=== PATIENT | female | born 1990 | race Caucasian/White ===

== ENCOUNTER 2017-09-05 16:19 | Observation (INO) | payer MEDICAID ==
[2017-09-05 17:24] LABS: ABSOLUTE BASOPHILS # (AUTO) 0.1 10^3/uL (0.0-0.2); ABSOLUTE LYMPHOCYTES (AUTO) 1.9 10^3/uL (0.5-4.7); ABSOLUTE MONOCYTES (AUTO) 0.6 10^3/uL (0.1-1.4); ABSOLUTE NEUT (AUTO) 7.8 10^3/uL (1.7-8.2); BASOPHILS % (AUTO) 0.7 % (0-2); EOSINOPHILS % (AUTO) 0.2 % (0-6); HEMATOCRIT 36.9 % (36.0-47.0); HEMOGLOBIN 12.2 g/dL (12.0-15.5); LYMPHOCYTES % (AUTO) 18.2 % (13-45); MEAN CORPUSCULAR HEMOGLOBIN 27.8 pg (27.0-33.4); MEAN CORPUSCULAR VOLUME 84 fl (80-97); PLATELET COUNT 141 10^3/uL (150-450); RED BLOOD COUNT 4.38 10^6/uL (3.72-5.28); RED CELL DISTRIBUTION WIDTH 13.7 % (11.5-14.0); SEGMENTED NEUTROPHILS % (AUTO) 74.9 % (42-78); TOTAL CELLS COUNTED % (AUTO) 100 %; WHITE BLOOD COUNT 10.5 10^3/uL (4.0-10.5)
[2017-09-05 17:53] LABS: ALANINE AMINOTRANSFERASE 17 U/L (9-52); ALBUMIN 3.2 g/dL (3.5-5.0); ALKALINE PHOSPHATASE 125 U/L (38-126); ANION GAP 13 (5-19); ASPARTATE AMINO TRANSFERASE 18 U/L (14-36); BILIRUBIN,DIRECT 0.3 mg/dL (0.0-0.4); BILIRUBIN,TOTAL 0.5 mg/dL (0.2-1.3); BLOOD UREA NITROGEN 12 mg/dL (7-20); CALCIUM 8.3 mg/dL (8.4-10.2); CARBON DIOXIDE 21 mmol/L (22-30); CHLORIDE 104 mmol/L (98-107); GLUCOSE 71 mg/dL (75-110); POTASSIUM 4.5 mmol/L (3.6-5.0); SODIUM 137.5 mmol/L (137-145); URIC ACID 6.8 mg/dL (2.5-6.2)
[2017-09-05 17:57] LABS: APPEARANCE,URINE CLEAR; BILIRUBIN,URINE NEGATIVE (NEGATIVE); COLOR,URINE YELLOW; GLUCOSE, URINE NEGATIVE (NEGATIVE); KETONES,URINE NEGATIVE (NEGATIVE); LEUKOCYTE ESTERASE,URINE TRACE (NEGATIVE); NITRITE,URINE NEGATIVE (NEGATIVE); PROTEIN,URINE >=500 mg/dL (NEGATIVE); URINE SPECIFIC GRAVITY 1.009; UROBILINOGEN,URINE NEGATIVE mg/dL (<2.0)
[2017-09-05 18:17] LABS: URINE AMPHETAMINES SCREEN NEGATIVE; URINE BARBITURATES SCREEN NEGATIVE; URINE BENZODIAZEPINES SCREEN NEGATIVE; URINE COCAINE SCREEN NEGATIVE; URINE MARIJUANA (THC) SCREEN NEGATIVE; URINE METHADONE SCREEN NEGATIVE; URINE PHENCYCLIDINE SCREEN NEGATIVE
[2017-09-05 18:56] LABS: UR PRO/CREAT RATIO RESULT 16.6 mg/mg (0.0-0.2); URINE CREATININE 65.8 mg/dL (16-327); URINE PROTEIN 1095.1 mg/dL (<12)
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
[2017-09-06] MEDS ORDERED: ACETAMINOPHEN 325 MG TABLET ONE ×2 (04:25→16:05)
[2017-09-06] MEDS ORDERED: ACETAMINOPHEN 325 MG TABLET PO ONE ×2 (04:28→16:30)
--- NOTE | 2017-09-06 10:24 | Non Stress Test Report ---
Non Stress Test Datetime Report Generated by CPN: 09/06/2017 10:24 DEMOGRAPHIC EGA NST: 36.0 EGA NST: 35.6 INDICATION Indication for Study: Ordered by Provider; Other Indication for Study: Ordered by Provider Indication for Study (NST) Other: observation MONITORING Monitor Explained: Monitor Explained; Test Explained; Patient Verbalized Understanding Monitor Explained: Monitor Explained Time on Monitor: 09/06/2017 09:56 Time on Monitor: 09/05/2017 16:37 Time off Monitor: 09/06/2017 10:20 Time off Monitor: 09/05/2017 20:55 NST Duration: 24 NST Duration: 258 NST INTERVENTIONS NST Interventions: PO Hydration; Reposition Patient NST Interventions: PO Hydration; Reposition Patient Physician Notified NST: Dr. Tolentino Physician Notified NST: Dr. Chris BABY A: [id number] BABY A Movement : Present Movement : Present Contraction Frequency : none Contraction Frequency : 0 FHR Baseline : 130 FHR Baseline : 130 Accelerations : 15X15 Accelerations : 15X15 Decelerations : None Decelerations : None Variability : Moderate 6-25bpm Variability : Moderate 6-25bpm NST Review: Meets Criteria for Reactive NST NST Review: Meets Criteria for Reactive NST NST Review and Verified By : Sunny Ya RN NST Results: Reactive NST Results: Reactive NST REPORT Report Trigger: Send Report
[2017-09-06 22:58] LABS: 24 HOUR URINE PROTEIN RESULT 19893 mg/day (42-225); 24 HR URINE CREAT RESULT 1.4 mg/day (0.8-2.0); URINE CREATININE 44.8 mg/dL (16-327); URINE PROTEIN 658.7 mg/dL (<12)
--- NOTE | 2017-09-07 03:03 | RADIOLOGY REPORT (SQ) ---
EXAM DESCRIPTION: US BIOPHYSICAL PROFILE WITHOUT NON STRESS TEST COMPLETED DATE/TME: 09/07/2017 00:00 CLINICAL HISTORY: 27 years, Female, Biophysical Profile, non reactive NST COMPARISON: None. TECHNIQUE: Biophysical profile performed. FINDINGS: tone: 2 breathin movement: 2 Amniotic fluid: 2 heart rate: 140 bpm. Placenta: Anterior. There is a small hypoechoic focus in the placenta measuring 4.0 cm. IMPRESSION: 1. Physical profile score 8/8. 2. Single live intrauterine with heart rate of 140 bpm. 2011 [employer]- All Rights Reserved
--- NOTE | 2017-09-08 22:46 | Non Stress Test Report ---
Non Stress Test Datetime Report Generated by CPN: 09/08/2017 22:45 DEMOGRAPHIC Test Number: 3 EGA NST: 36.0 INDICATION Indication for Study: Ordered by Provider MONITORING Monitor Explained: Monitor Explained; Test Explained; Patient Verbalized Understanding Time on Monitor: 09/06/2017 20:46 Time off Monitor: 09/07/2017 01:57 NST Duration: 311 NST INTERVENTIONS NST Interventions: PO Hydration; Reposition Patient; Vibroacoustic Stim; For Biophysical Profile NST Interventions Other: BPP ordered Physician Notified NST: Dr. Tolentino BABY A: [id number] BABY A Movement : Present Contraction Frequency : none FHR Baseline : 140 Accelerations : 10X10 Variability : Moderate 6-25bpm NST Review: Does Not Meet Criteria for Reactive NST NST Review and Verified By : Rupa Burnett RN NST Results: Non-Reactive NST REPORT Report Trigger: Send Report
== END 2017-09-07 03:03 | disposition home or self-care (01) ==
LOC: LC 16:19 → LR 19:12 → INTOOBSV 19:12
PROVIDERS: ADMIT Obstetrics & Gynecology; ATTEND Obstetrics & Gynecology
PROC: 4A0HXCZ Measurement of Products of Conception, Cardiac Rate, External Approach (ICD-10-PCS; principal; 2017-09-06)
DX: O14.93 Unspecified pre-eclampsia, third trimester (principal); O47.03 False labor before 37 completed weeks of gestation, third trimester; Z3A.35 35 weeks gestation of pregnancy; Z87.59 Personal history of other complications of pregnancy, childbirth and the puerperium
CPT/HCPCS: 59025; 94760; 36415; 82570 ×2; 83615; 84156 ×2; 84550; 85025; 81005; 87077; 80053; 87081; 80307; 76819; G0378 ×3; G0379; J3490

== ENCOUNTER 2017-09-08 23:19 | Inpatient (IN) | payer MEDICAID ==
[2017-09-08] MEDS ORDERED: DINOPROSTONE 10 MG VAGINAL INSERT.SR PV PRN (23:27)
[2017-09-08] MEDS ORDERED: RINGERS SOLUTION,LACTATED 300 ML IV ONE (23:27)
[2017-09-09] MEDS: RINGERS SOLUTION,LACTATED 1,000 ML IV PRN ×5 (00:02→23:44)
[2017-09-09] MEDS ORDERED: DINOPROSTONE 10 MG VAGINAL INSERT.SR ONE (00:14)
[2017-09-09 00:17] LABS: ALANINE AMINOTRANSFERASE 22 U/L (9-52); ALKALINE PHOSPHATASE 128 U/L (38-126); ANION GAP 8 (5-19); ASPARTATE AMINO TRANSFERASE 22 U/L (14-36); BILIRUBIN,DIRECT 0.2 mg/dL (0.0-0.4); BILIRUBIN,TOTAL 0.5 mg/dL (0.2-1.3); BLOOD UREA NITROGEN 12 mg/dL (7-20); CARBON DIOXIDE 22 mmol/L (22-30); CHLORIDE 106 mmol/L (98-107); GLUCOSE 74 mg/dL (75-110); POTASSIUM 4.2 mmol/L (3.6-5.0); TOTAL PROTEIN 5.6 g/dL (6.3-8.2); URIC ACID 7.2 mg/dL (2.5-6.2)
[2017-09-09 00:20] LABS: ABSOLUTE LYMPHOCYTES (AUTO) 2.5 10^3/uL (0.5-4.7); ABSOLUTE MONOCYTES (AUTO) 0.6 10^3/uL (0.1-1.4); BASOPHILS % (AUTO) 0.4 % (0-2); EOSINOPHILS % (AUTO) 0.3 % (0-6); HEMATOCRIT 36.9 % (36.0-47.0); HEMOGLOBIN 12.3 g/dL (12.0-15.5); LYMPHOCYTES % (AUTO) 24.3 % (13-45); MEAN CORPUSCULAR HEMOGLOBIN 27.6 pg (27.0-33.4); MEAN CORPUSCULAR HGB CONC 33.2 g/dL (32.0-36.0); MEAN CORPUSCULAR VOLUME 83 fl (80-97); PLATELET COUNT 141 10^3/uL (150-450); RED BLOOD COUNT 4.44 10^6/uL (3.72-5.28); RED CELL DISTRIBUTION WIDTH 13.4 % (11.5-14.0); TOTAL CELLS COUNTED % (AUTO) 100 %; WHITE BLOOD COUNT 10.2 10^3/uL (4.0-10.5)
[2017-09-09 00:23] LABS: URINE CREATININE 84.8 mg/dL (16-327)
[2017-09-09 00:24] LABS: AMORPHOUS SEDIMENT,URINE TRACE /HPF; APPEARANCE,URINE SLIGHTLY-CLOUDY; BILIRUBIN,URINE NEGATIVE (NEGATIVE); COLOR,URINE YELLOW; GLUCOSE, URINE NEGATIVE (NEGATIVE); KETONES,URINE NEGATIVE (NEGATIVE); LEUKOCYTE ESTERASE,URINE LARGE (NEGATIVE); NITRITE,URINE NEGATIVE (NEGATIVE); PROTEIN,URINE >=500 mg/dL (NEGATIVE); URINE SPECIFIC GRAVITY 1.015; UROBILINOGEN,URINE NEGATIVE mg/dL (<2.0)
[2017-09-09 00:26] LABS: FIBRINOGEN 428 mg/dL (209-497); INTERNATIONAL RATION (INR) 0.77; PARTIAL THROMBOPLASTIN TIME 29.7 SEC (23.5-35.8); PROTHROMBIN TIME 11.2 SEC (11.4-15.4)
[2017-09-09 00:27] LABS: URINE AMPHETAMINES SCREEN NEGATIVE; URINE BARBITURATES SCREEN NEGATIVE; URINE BENZODIAZEPINES SCREEN NEGATIVE; URINE COCAINE SCREEN NEGATIVE; URINE MARIJUANA (THC) SCREEN NEGATIVE; URINE METHADONE SCREEN NEGATIVE; URINE PHENCYCLIDINE SCREEN NEGATIVE
[2017-09-09 00:51] LABS: UR PRO/CREAT RATIO RESULT 19.4 mg/mg (0.0-0.2); URINE PROTEIN 1647.2 mg/dL (<12)
[2017-09-09] MEDS ORDERED: PENICILLIN G-K 5 MILLION UNIT VIAL ONE ×2 (02:54→06:38)
[2017-09-09] MEDS ORDERED: PENICILLIN G POTASSIUM 5,000,000 UNIT in DEXTROSE 5%-WATER 100 ML IV ONE (02:58)
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
[2017-09-09 07:36] LABS: ABSOLUTE BASOPHILS # (AUTO) 0.1 10^3/uL (0.0-0.2); ABSOLUTE LYMPHOCYTES (AUTO) 1.9 10^3/uL (0.5-4.7); ABSOLUTE MONOCYTES (AUTO) 0.6 10^3/uL (0.1-1.4); ABSOLUTE NEUT (AUTO) 8.9 10^3/uL (1.7-8.2); BASOPHILS % (AUTO) 0.5 % (0-2); EOSINOPHILS % (AUTO) 0.2 % (0-6); HEMATOCRIT 37.6 % (36.0-47.0); HEMOGLOBIN 12.5 g/dL (12.0-15.5); LYMPHOCYTES % (AUTO) 16.4 % (13-45); MEAN CORPUSCULAR HEMOGLOBIN 27.3 pg (27.0-33.4); MEAN CORPUSCULAR HGB CONC 33.2 g/dL (32.0-36.0); MEAN CORPUSCULAR VOLUME 82 fl (80-97); MONOCYTES % (AUTO) 5.1 % (3-13); PLATELET COUNT 124 10^3/uL (150-450); RED BLOOD COUNT 4.56 10^6/uL (3.72-5.28); RED CELL DISTRIBUTION WIDTH 13.4 % (11.5-14.0); SEGMENTED NEUTROPHILS % (AUTO) 77.8 % (42-78); TOTAL CELLS COUNTED % (AUTO) 100 %; WHITE BLOOD COUNT 11.5 10^3/uL (4.0-10.5)
[2017-09-09 08:02] LABS: ALANINE AMINOTRANSFERASE 23 U/L (9-52); ALBUMIN 2.9 g/dL (3.5-5.0); ALKALINE PHOSPHATASE 135 U/L (38-126); ANION GAP 9 (5-19); ASPARTATE AMINO TRANSFERASE 22 U/L (14-36); BILIRUBIN,DIRECT 0.3 mg/dL (0.0-0.4); BILIRUBIN,TOTAL 0.7 mg/dL (0.2-1.3); BLOOD UREA NITROGEN 8 mg/dL (7-20); CARBON DIOXIDE 22 mmol/L (22-30); CHLORIDE 108 mmol/L (98-107); GLUCOSE 80 mg/dL (75-110); POTASSIUM 4.4 mmol/L (3.6-5.0); SODIUM 138.7 mmol/L (137-145); TOTAL PROTEIN 5.6 g/dL (6.3-8.2); URIC ACID 6.4 mg/dL (2.5-6.2)
--- NOTE | 2017-09-09 08:24 | L&D Progress Notes ---
PROGRESS NOTES Datetime Report Generated by CPN: 09/09/2017 08:24 PROGRESS NOTE Impression: Normal Progression of Labor; Reassuring Heart Rate Procedures: Artificial ROM; Scalp Electrode; Sterile Vag Exam Plan: Continue Present Management; Anticipate Vaginal Delivery Informed Consent Obtained: Vaginal Delivery Informed Consent Obtained: Vaginal Delivery; Induction of Labor; Risks, Benefits and Alternatives Discussed Vital Signs : Reviewed; Within Normal Limits Comment: breathing with uc's, VE 8/90/vtx/0/-1, + bloody show, uc's q 2-3 min, Dr. Chris in room, agrees with POC anticipate , resting on left side VAGINAL EXAM Dilatation: 8 Dilatation: 1 Effacement: 90 Effacement: 25 Station: 0 Station: -2 Contractions: irreg MEMBRANES Pooling: Negative Membranes: Ruptured Membranes: Intact Amniotic Fluid Color: Clear FETUS A FHR - Baseline: 150 Variability: Moderate 6-25bpm Accelerations: 15X15 Decelerations: Variable : 36.0 Presentation: Vertex Presentation: Vertex SIGNATURE SIGNATURE: 10,[id number];13,[id number];14,[id number] SIGNATURE: 14,[id number];13,[id number] SIGNATURE: 13,[id number];14,[id number] SIGNATURE: 14,[id number];13,[id number] SIGNATURE: 13,[id number] Assignment: Jhonatan Chris MD Signature: with User ID: [email or web address] : with User ID: [email or web address]
[2017-09-09] MEDS ORDERED: MISOPROSTOL 0.2 MG TABLET ONE (08:27)
[2017-09-09] MEDS ORDERED: FENTANYL/BUPIVACAINE/NS/PF 300 MCG/150 ML RTUINJ EPI ONE (08:27)
[2017-09-09] MEDS ORDERED: LIDOCAINE 1% INJ-PF (10 MG/ML) 30 ML SDV ONE (08:27)
[2017-09-09] MEDS ORDERED: PHENYLEPHRINE HCL INJ/PF 10 MG/1 ML SDV ONE (08:27)
[2017-09-09] MEDS ORDERED: FENTANYL CITRATE INJ/PF 100 MCG/2 ML AMPUL ONE (08:27)
[2017-09-09] MEDS ORDERED: EPHEDRINE SULFATE INJ 50 MG/1 ML AMPULE ONE (08:27)
[2017-09-09] MEDS ORDERED: OXYTOCIN/NORMAL SALINE 20 UNIT/1,000 ML RTUINJ ONE (08:28)
[2017-09-09] MEDS ORDERED: BUPIVACAINE HCL 0.25 % INJ/PF (2.5 MG/1 ML) 30 ML VIAL ONE (08:28)
[2017-09-09] MEDS ORDERED: MAGNESIUM SULFATE 20 GM/500 ML RTUINJ IV ONE ×2 (10:14→21:24)
[2017-09-09] MEDS ORDERED: MAGNESIUM SULFATE 4 GM/100 ML RTUPB IV ONE (10:14)
[2017-09-09] MEDS ORDERED: OXYTOCIN/NORMAL SALINE 20 UNIT/1,000 ML RTUINJ IV PRN (10:22)
[2017-09-09] MEDS ORDERED: MAGNESIUM HYDROXIDE SUSP 30 ML UDCUP PO PRN (10:22)
[2017-09-09] MEDS ORDERED: ACETAMINOPHEN WITH CODEINE #3 TABLET PO PRN ×2 (10:22)
[2017-09-09] MEDS ORDERED: MEASLES,MUMPS&RUBELLA VACC/PF 0.5 ML VIAL SUBCUT PRN (10:22)
[2017-09-09] MEDS ORDERED: PROMETHAZINE HCL 25 MG TABLET PO PRN (10:22)
[2017-09-09] MEDS ORDERED: DIBUCAINE 1% OINTMENT 28 GM TP PRN (10:22)
[2017-09-09] MEDS ORDERED: NA PHOS,M-B/NA PHOS,DI-BA (ADULT) 133 ML ENEMA PR PRN (10:22)
[2017-09-09] MEDS ORDERED: PSEUDOEPHEDRINE HCL 30 MG TABLET PO PRN (10:22)
[2017-09-09] MEDS ORDERED: ZOLPIDEM TARTRATE 5 MG TABLET PO PRN (10:22)
[2017-09-09] MEDS ORDERED: DIPH/PERTUSS(ACELL)/TETANUS VAC/PF 0.5 ML SYR (>=10YO) IM PRN (10:22)
[2017-09-09] MEDS ORDERED: PROMETHAZINE HCL 25 MG SUPP.RECT PR PRN (10:22)
[2017-09-09] MEDS ORDERED: BENZOCAINE/MENTHOL AEROSOL SPRAY 56 ML TOP PRN (10:22)
[2017-09-09] MEDS ORDERED: ACETAMINOPHEN 650 MG SUPP.RECT PR PRN (10:22)
[2017-09-09] MEDS ORDERED: PROMETHAZINE HCL INJ 25 MG/1 ML VIAL IV PRN (10:22)
[2017-09-09] MEDS ORDERED: DIPHENHYDRAMINE HCL 25 MG CAPSULE PO PRN (10:22)
[2017-09-09] MEDS ORDERED: GLYCERIN/WITCH HAZEL LEAF 1 EACH MED..PAD TP PRN (10:22)
[2017-09-09] MEDS ORDERED: IBUPROFEN 800 MG TABLET ONE (15:19)
[2017-09-09] MEDS: IBUPROFEN 800 MG TABLET PO SCH (15:22)
--- NOTE | 2017-09-09 21:45 | Delivery Summary ---
Del Sum A-C Datetime Report Generated by CPN: 09/09/2017 21:44 DELIVERY PERSONNEL DELIVERY PERSONNEL: [id number] Delivery Doctor:: Jhonatan Chris MD Labor and Delivery Nurse:: Verna Moncada RNoperational intelligence analyst Nurse:: ISAURO Hurtado Nursery Nurse:: ISAURO Gong Additional Personnel: : Hope Garcia RN MATERNAL INFORMATION Delivery Anesthesia: Epidural Medications After Delivery: Pitocin Bolus-Please Comment; Pitocin Drip 20 Units/1000ml NSS Meds After Delivery Comment: Pitocin bolusing per order Maternal Complications: Abruptio Placenta LABOR SUMMARY EDC: 10/04/2017 00:00 No. Babies in Womb: 1 Attempted: No Labor Anesthesia: Epidural LABOR INFORMATION Reason for Induction: Pre-Eclampsia Onset of Labor: 09/09/2017 08:00 Complete Dilatation: 09/09/2017 09:54 Cervical Ripening Agents: Cervidil Oxytocin: N/A Group B Beta Strep: Positive Antibiotics # of Doses: 2 Antibiotics Time of Last Dose: 0649 Name of Antibiotic Given: PCN Steroids Given: None Reason Steroids Not Administered: Not Applicable MEMBRANES Membranes Rupture Method: Artificial Rupture of Membranes: 09/09/2017 08:13 (Annotations: Data stored by [facility] on behalf of user) Length of Rupture (hr): 1.90 Amniotic Fluid Color: Clear Amniotic Fluid Amount: Scant Amniotic Fluid Odor: Normal STAGES OF LABOR Stage 1 hr: 1 Stage 1 min: 54 Stage 2 hr: 0 Stage 2 min: 13 Stage 3 hr: 0 Stage 3 min: 2 Total Time in Labor hr: 2 Total Time in Labor min: 9 VAGINAL DELIVERY Episiotomy: None Laceration #1: None Laceration Extension #1: N/A Laceration Repair: Not Applicable Sponge Count Correct: Vaginal Sweep Performed Sharps Count Correct: N/A CSECTION DELIVERY Primary Indication: N/A Secondary Indication: N/A CSection Incidence: N/A Labor: N/A Elective: N/A CSection Incision: N/A BABY A INFORMATION Infant Delivery Date/Time: 09/09/2017 10:07 Method of Delivery: Vaginal Born in Route : No : N/A Forceps: N/A Vacuum Extraction: Successful Shoulder Dystocia : No ASSISTED DELIVERY BABY A Indication for Assisted Delivery: heart rate decellerations Catheter Prior to Procedure: Yes Station Vacuum/Forcep Apply: Position Vacuum/Forcep Apply: Right Occipital Anterior Vacuum Number of Pulls: one Vacuum Number of PopOffs: none Vacuum Clinical Education Coordinator: Spinal Simplicity Total Time Vacuum Applied: 15 seconds Vacuum/Forceps Comment: One pull with pressure in green on kiwi vac. PRESENTATION/POSITION BABY A Presentation: Cephalic Cephalic Presentation: Vertex Vertex Position: Right Occipital Anterior Breech Presentation: N/A PLACENTA INFORMATION BABY A Placenta Delivery Time : 09/09/2017 10:09 Placenta Method of Delivery: Spontaneous Placenta Status: Delivered SCORES BABY A Heart Rate 1 min: >100 bpm Resp Effort 1 min: Good Cry Reflex Irritability 1 min: Cough or Sneeze or Pulls Away Muscle Tone 1 min: Active Motion Color 1 min: Body [place], Extremities Blue Resuscitation Effort 1 min: Tactile Stimulation SCORE 1 MIN: 9 Heart Rate 5 min: >100 bpm Resp Effort 5 min: Good Cry Reflex Irritability 5 min: Cough or Sneeze or Pulls Away Muscle Tone 5 min: Active Motion Color 5 min: Body [place], Extremities Blue Resuscitation Effort 5 min: Tactile Stimulation SCORE 5 MIN: 9 INFANT INFORMATION BABY A Gestational Age at Delivery: 36.3 Gestational Status: Late - 34- 36.6 Weeks Infant Outcome : Liveborn Infant Condition : Stable Sex: Male IDENTIFICATION BABY A Verification Date/Time: 09/09/2017 10:21 ID Band Number: [id number] Mother's Name Verified: Yes Infant RN Verifying : Stephanie Unger RN and Nina Smith, Corporate Legal Secretary WEIGHT/LENGTH BABY A Birthweight (gm): 2150 Infant Weight (lb): 4 Infant Weight (oz): 12 Length (in): 19.00 Length (cm): 48.26 CORD INFORMATION BABY A No. Cord Vessels: 3 Nuchal Cord : Body cord Cord Blood Taken: Yes-For Storage (Mom's Blood type +) Infant Suction: None ASSESSMENT BABY A Infant Complications: None Physical Findings at Delivery: Within Normal Limits Skin to Skin: Yes Skin to Skin Time (min): 60 Transferred To: Remains with Mother BABY B INFORMATION : N/A SIGNATURES Signature: with User ID: [email or web address]
[2017-09-10] MEDS ORDERED: HYDRALAZINE HCL INJ/PF 20 MG/1 ML SDV ONE (01:53)
[2017-09-10] MEDS ORDERED: HYDRALAZINE HCL INJ/PF 20 MG/1 ML SDV IV ONE (02:08)
[2017-09-10] MEDS ORDERED: ACETAMINOPHEN 325 MG TABLET ONE (04:35)
[2017-09-10] MEDS ORDERED: ACETAMINOPHEN WITH CODEINE #3 TABLET ONE (04:40)
--- NOTE | 2017-09-10 07:08 | PDOC PROGRESS REPORT ---
Subjective Progress Note for:: 09/10/17 Subjective:: Doing well today. Reason For Visit: INDUCTION OF LABOR Physical Exam - Physical Exam Vital Signs: Intake & Output 09/09/17 09/10/17 09/11/17 06:59 06:59 06:59 Intake Total 773 2651 Balance 773 2651 Weight 86.5 kg General appearance: PRESENT: no acute distress Result Laboratory Results: 09/09/17 07:24 09/09/17 07:24 09/09/17 09/09/17 07:24 07:24 WBC 11.5 H RBC 4.56 Hgb 12.5 Hct 37.6 MCV 82 MCH 27.3 MCHC 33.2 RDW 13.4 Plt Count 124 L Seg Neutrophils % 77.8 Lymphocytes % 16.4 Monocytes % 5.1 Eosinophils % 0.2 Basophils % 0.5 Absolute Neutrophils 8.9 H Absolute Lymphocytes 1.9 Absolute Monocytes 0.6 Absolute Eosinophils 0.0 Absolute Basophils 0.1 Sodium 138.7 Potassium 4.4 Chloride 108 H Carbon Dioxide 22 Anion Gap 9 BUN 8 Creatinine 0.66 Est GFR ( Amer) > 60 Est GFR (Non-Af Amer) > 60 Glucose 80 Uric Acid 6.4 H Calcium 8.0 L Total Bilirubin 0.7 AST 22 ALT 23 Alkaline Phosphatase 135 H Total Protein 5.6 L Albumin 2.9 L Impressions: Post Assessment & Plan - Diagnosis (1) Pre-eclampsia Is this a current diagnosis for this admission?: Yes - Plan Summary Plan Summary: Wean off the magnesium. Begin procardia xl 30 mg bid.
[2017-09-10] MEDS: PENICILLIN G POTASSIUM 2,500,000 UNIT in DEXTROSE 5%-WATER 50 ML IV SCH ×2 (07:24→07:25)
[2017-09-10] MEDS: IBUPROFEN 800 MG TABLET PO SCH ×4 (07:26→21:53)
[2017-09-10] MEDS: DOCUSATE SODIUM 100 MG CAPSULE PO SCH ×3 (07:27→18:40)
[2017-09-10] MEDS: FERROUS SULFATE 325 MG TABLET PO SCH ×3 (07:27→18:40)
[2017-09-10] MEDS: FAMOTIDINE 20 MG TABLET PO SCH ×3 (07:28→21:52)
[2017-09-10] MEDS ORDERED: IBUPROFEN 800 MG TABLET ONE (07:30)
[2017-09-10] MEDS ORDERED: NIFEDIPINE 30 MG TAB.ER.24 PO ONE (08:10)
[2017-09-10 08:24] LABS: MEAN CORPUSCULAR HGB CONC 33.4 g/dL (32.0-36.0); MEAN CORPUSCULAR VOLUME 84 fl (80-97); PLATELET COUNT 112 10^3/uL (150-450); RED CELL DISTRIBUTION WIDTH 13.8 % (11.5-14.0)
[2017-09-10] MEDS: NIFEDIPINE 30 MG TAB.ER.24 PO SCH ×2 (10:36→21:53)
[2017-09-10] MEDS: PRENATAL VITAMIN W DHA CAPSULE PO SCH (10:38)
[2017-09-10] MEDS: SENNOSIDES/DOCUSATE 8.6-50 MG 1 EACH TABLET PO SCH (10:38)
[2017-09-11] MEDS: IBUPROFEN 800 MG TABLET PO SCH ×2 (06:11→14:01)
--- NOTE | 2017-09-11 09:51 | PDOC PROGRESS REPORT ---
Subjective-OB Progress Note for:: 09/11/17 Subjective: Doing well, feeling good, baby under bili lights, Physical Exam (OB) Vital Signs: Temp Pulse Resp BP Pulse Ox 98.8 F 87 18 129/82 H 97 09/11/17 08:54 09/11/17 08:54 09/11/17 08:54 09/11/17 08:54 09/11/17 08:54 Intake & Output 09/10/17 09/11/17 09/12/17 06:59 06:59 06:59 Intake Total 2651 632 Balance 2651 632 - PIH/Pre-Eclampsia DTR's: 2 + Clonus: Negative Headache: Absent Epigastric Pain: No Visual Changes: No - Lochia Lochia Amount: Scant < 10 ml Lochia Color: Rubra/Red - Abdomen Description: Soft Hernia Present: No Fundal Description: Firm, Midline Fundal Height: u/u - u/2 Objective-Diagnostic Laboratory: 09/10/17 07:29 09/09/17 07:24 Assessment and Plan(PN) - Assessment and Plan (1) Vacuum extraction, delivered, current hospitalization Is this a current diagnosis for this admission?: Yes (2) Pre-eclampsia Is this a current diagnosis for this admission?: Yes - Time Spent with Patient Time with patient: Less than 15 minutes Medications reviewed and adjusted accordingly: Yes - Disposition Anticipated Discharge: Home Within: Other - home today
--- NOTE | 2017-09-11 09:59 | PDOC DISCHARGE SUMMARY ---
Final Diagnosis Discharge Date: 09/11/17 - Final Diagnosis (1) Vacuum extraction, delivered, current hospitalization Is this a current diagnosis for this admission?: Yes (2) Pre-eclampsia Is this a current diagnosis for this admission?: Yes Discharge Data - Discharge Medication Prescriptions: Nifedipine [Procardia XL 30 mg Tablet] 30 mg PO Q12 #60 tab.er.24 Home Medications: Acetaminophen [Tylenol Extra Strength 500 mg Tablet] 1 tab PO Q8 PRN 09/05/17 Vit/Iron Fum/Folic AC [ Tablet] 1 each PO DAILY 09/05/17 Nifedipine [Procardia XL 30 mg Tablet] 30 mg PO Q12 #60 tab.er.24 09/11/17 Gestational Age: 36.3 Reason(s) for Admission: Induction of Labor, PIH, Group B Strep Positive Admission Note: pre-eclampsia Procedures: NST, Ultrasound Intrapartum Procedure(s): Spontaneous Vaginal Delivery, Vacuum Extraction Intrapartum Procedure Note: abruption - [place] Data Baby 1 Male at 1 minute: 9 at 5 minutes: 9 Weight: 2.155 kg Home with Mother: No Complications: Yes - jaundice - Diagnosis Test Laboratory: Temp Pulse Resp BP Pulse Ox 98.8 F 87 18 129/82 H 97 09/11/17 08:54 09/11/17 08:54 09/11/17 08:54 09/11/17 08:54 09/11/17 08:54 09/08/17 09/08/17 09/09/17 23:19 23:45 07:24 RBC 4.44 4.56 Hgb 12.3 12.5 Hct 36.9 37.6 Urine Opiates Screen NEGATIVE 09/10/17 07:29 RBC 4.30 Hgb 12.0 Hct 36.0 Urine Opiates Screen - Discharge information/Instructions Discharge Activity: Activity As Tolerated, Balance Activity w/Rest, No Lifting Over 10 Pounds, No Lifting/Push/Pulling, Pelvic Rest Discharge Diet: As Tolerated, Regular Disposition: HOME, SELF-CARE Follow up with: [facility] in: 2, Days - BP check
[2017-09-11 10:17] VITALS: BP 127/87
[2017-09-11] MEDS: FAMOTIDINE 20 MG TABLET PO SCH (10:52)
[2017-09-11] MEDS: PRENATAL VITAMIN W DHA CAPSULE PO SCH (10:52)
[2017-09-11] MEDS: DOCUSATE SODIUM 100 MG CAPSULE PO SCH ×2 (10:52→17:24)
[2017-09-11] MEDS: NIFEDIPINE 30 MG TAB.ER.24 PO SCH (10:52)
[2017-09-11] MEDS: SENNOSIDES/DOCUSATE 8.6-50 MG 1 EACH TABLET PO SCH (10:52)
[2017-09-11] MEDS: FERROUS SULFATE 325 MG TABLET PO SCH ×2 (10:52→17:24)
== END 2017-09-11 17:30 | disposition home or self-care (01) | DRG 774 ==
LOC: LR 23:19 → 2S 09-10 09:20
PROVIDERS: ADMIT Obstetrics & Gynecology; ATTEND Obstetrics & Gynecology
PROC: 10D07Z6 Extraction of Products of Conception, Vacuum, Via Natural or Artificial Opening (ICD-10-PCS; principal; 2017-09-09)
DX: O14.14 Severe pre-eclampsia complicating childbirth (principal); O45.93 Premature separation of placenta, unspecified, third trimester; O13.4 Gestational [pregnancy-induced] hypertension without significant proteinuria, complicating childbirth; O99.824 Streptococcus B carrier state complicating childbirth; O76 Abnormality in fetal heart rate and rhythm complicating labor and delivery; O99.344 Other mental disorders complicating childbirth; F41.8 Other specified anxiety disorders; Z3A.36 36 weeks gestation of pregnancy; Z37.0 Single live birth
CPT/HCPCS: 36415; 80053; 80307; 81001; 82570; 83615; 84156; 84550; 85025; 85027; 85384; 85610; 85730; 86592; 86850; 86900; 86901; 94760; J0360; J2370; J2540; J2590; J3010; J3475; J3490